=== PATIENT | female | born 1980 | race Hispanic/Latino ===

== ENCOUNTER 2020-09-24 20:25 | Inpatient (IN) | payer SELFPAY ==
[~2020-09-24] VITALS: Ht 157.5 cm; Wt 58.5 kg
[2020-09-24] MEDS ORDERED: ZOSYN 3.375GM+NS 50ML 50 ML IV ONE (21:41)
[2020-09-24 22:00] LABS: APPEARANCE,URINE CLOUDY (CLEAR); BILIRUBIN,URINE NEGATIVE (NEGATIVE); COLOR,URINE YELLOW (YELLOW); GLUCOSE, URINE (UA) 100 mg/dL (NEGATIVE); KETONES,URINE NEGATIVE (NEGATIVE); LEUKOCYTE ESTERASE ,URINE TRACE (NEGATIVE); NITRATE,URINE NEGATIVE (NEGATIVE); OCCULT BLOOD,URINE TRACE-INTACT (NEGATIVE); PROTEIN,URINE 30 mg/dL (NEGATIVE)
[2020-09-24 22:03] LABS: HCG,QUAL RESULT NEGATIVE (NEGATIVE)
[2020-09-24] MEDS ORDERED: ONDANSETRON HCL 4 MG/2 ML VIAL ONE (22:04)
[2020-09-24] MEDS ORDERED: SODIUM CHLORIDE 0.9% 1000ML 1,000 ML IV ONE (22:05)
[2020-09-24] MEDS ORDERED: MORPHINE SULFATE 4 MG/1ML SYG ONE (22:05)
[2020-09-24] MEDS ORDERED: ACETAMINOPHEN 325 MG TAB ONE (22:05)
[2020-09-24 22:13] LABS: BASOPHILS % (AUTO) 0.2 % (0.0-5.0); HEMATOCRIT 33.4 % (36-48); LYMPHOCYTES % (AUTO) 7.5 % (21.0-51.0); MEAN CORPUSCULAR HEMOGLOBIN 30.3 pg (27.0-33.0); MEAN CORPUSCULAR HGB CONC 32.6 g/dL (32.0-36.0); MEAN CORPUSCULAR VOLUME 92.8 fL (79-99); MONOCYTES % (AUTO) 5.5 % (3.0-13.0); NEUTROPHILS % (AUTO) 86.1 % (40.0-77.0); PLATELET COUNT (AUTO) 341 K/uL (130-400); RED CELL DISTRIBUTION WIDTH 12.4 % (11.0-15.5); WHITE BLOOD COUNT (AUTO) 21.5 K/uL (4.8-10.8)
[2020-09-24 22:14] LABS: BACTERIA,URINE Rare /HPF (None Seen); RBC,URINE 0-1 /HPF (0-1); YEAST,URINE BUDDING Moderate /HPF (None Seen)
[2020-09-24 22:15] LABS: SQUAMOUS EPITHELIAL CELL,UR None Seen /HPF (0-2)
[2020-09-24 22:22] LABS: INR 1.03 (0.85-1.15); PROTHROMBIN TIME 11.2 SEC (9.6-11.6)
[2020-09-24 22:25] LABS: CREATININE 0.6 mg/dL (0.5-1.5); POTASSIUM 3.2 mmol/L (3.5-5.1)
[2020-09-24 22:30] LABS: ALBUMIN 3.3 g/dL (3.5-5.0); BILIRUBIN,TOTAL 1.6 mg/dL (0.2-1.0); TOTAL PROTEIN, SERUM 7.6 g/dL (6.0-8.3)
[2020-09-24] MEDS ORDERED: IOHEXOL-350 75 ML VIAL IV ONE (22:32)
[2020-09-25] MEDS ORDERED: LACTATED RINGERS 1000ML 1,000 ML IV SCH (00:15)
[2020-09-25] MEDS ORDERED: LACTULOSE 20 GM/30 ML UDCUP PO PRN (02:30)
[2020-09-25] MEDS ORDERED: ONDANSETRON HCL 4 MG/2 ML VIAL IV PRN (02:30)
[2020-09-25] MEDS ORDERED: NITROGLYCERIN 0.4 MG SL TAB SL PRN (02:30)
[2020-09-25] MEDS ORDERED: ACETAMINOPHEN 325 MG TAB PO PRN ×2 (02:30)
[2020-09-25] MEDS ORDERED: DIPHENHYDRAMINE HCL 25 MG CAPSULE PO PRN (02:30)
[2020-09-25] MEDS ORDERED: DiphenhydrAMINE HCL 50 MG/ML VIAL IV PRN (02:30)
[2020-09-25] MEDS ORDERED: MORPHINE SULFATE 2 MG/ML 1ML SYG IV PRN (02:30)
[2020-09-25] MEDS ORDERED: MAG HYDROX/AL HYDROX/SIMETH ES 30 ML SUSP UDCUP PO PRN (02:30)
[2020-09-25] MEDS: LACTATED RINGERS 1000ML 1,000 ML IV SCH ×3 (02:30→20:26)
[2020-09-25] MEDS ORDERED: GUAIFENESIN-DM 200/20 MG 10 ML PO PRN (02:30)
[2020-09-25] MEDS: DOXYCYCLINE 100MG+NS 250ML 250 ML IV SCH ×2 (03:00→15:00)
[2020-09-25] MEDS ORDERED: DOXYCYCLINE 100MG+NS 250ML 250 ML IV ONE ×2 (03:41→15:43)
[2020-09-25] MEDS ORDERED: MORPHINE SULFATE 2 MG/ML 1ML SYG ONE ×2 (03:49→16:01)
[2020-09-25 03:58] LABS: HEMATOCRIT 28.4 % (36-48); MEAN CORPUSCULAR HEMOGLOBIN 30.6 pg (27.0-33.0); MEAN CORPUSCULAR HGB CONC 32.4 g/dL (32.0-36.0); MEAN CORPUSCULAR VOLUME 94.4 fL (79-99); RED BLOOD CELL COUNT(AUTO) 3.01 MIL/uL (4.00-5.50); RED CELL DISTRIBUTION WIDTH 12.3 % (11.0-15.5); WHITE BLOOD COUNT (AUTO) 17.4 K/uL (4.8-10.8)
[2020-09-25 04:22] LABS: ALBUMIN 2.5 g/dL (3.5-5.0); BILIRUBIN,DIRECT 0.5 mg/dL (0.0-0.3); BILIRUBIN,TOTAL 1.3 mg/dL (0.2-1.0); CREATININE 0.6 mg/dL (0.5-1.5); CRP QUANTITATIVE 165.8 mg/L (0.00-9.0); POTASSIUM 3.1 mmol/L (3.5-5.1); TOTAL PROTEIN, SERUM 6.5 g/dL (6.0-8.3)
[2020-09-25] MEDS: ZOSYN 3.375GM+NS 50ML 50 ML IV SCH ×3 (06:00→21:24)
[2020-09-25] MEDS ORDERED: ZOSYN 3.375GM+NS 50ML 50 ML IV ONE ×2 (07:51→15:42)
[2020-09-25] MEDS ORDERED: FAMOTIDINE/PF 20 MG/2 ML VIAL IV ONE (07:52)
[2020-09-25] MEDS: FAMOTIDINE/PF 20 MG/2 ML VIAL IV SCH ×2 (09:00→20:51)
[2020-09-25 16:19] VITALS: BP 139/90
[2020-09-25 20:01] VITALS: BP 136/81
[2020-09-25 23:25] VITALS: BP 119/62
[2020-09-26] VITALS (17 sets, daily range): BP systolic 116–134; BP diastolic 69–80
[2020-09-26] MEDS ORDERED: DOXYCYCLINE 100MG+NS 250ML 250 ML IV ONE (03:06)
[2020-09-26] MEDS: DOXYCYCLINE 100MG+NS 250ML 250 ML IV SCH ×2 (03:18→15:35)
[2020-09-26] MEDS: MORPHINE SULFATE 2 MG/ML 1ML SYG IV PRN ×3 (05:24→20:39)
[2020-09-26] MEDS: ZOSYN 3.375GM+NS 50ML 50 ML IV SCH ×3 (05:25→20:37)
[2020-09-26 05:48] LABS: BASOPHILS % (AUTO) 0.2 % (0.0-5.0); EOSINOPHILS % (AUTO) 0.2 % (0.0-8.0); LYMPHOCYTES % (AUTO) 12.6 % (21.0-51.0); MEAN CORPUSCULAR HEMOGLOBIN 30.4 pg (27.0-33.0); MEAN CORPUSCULAR HGB CONC 32.1 g/dL (32.0-36.0); MEAN CORPUSCULAR VOLUME 94.6 fL (79-99); MONOCYTES % (AUTO) 6.7 % (3.0-13.0); NEUTROPHILS % (AUTO) 79.9 % (40.0-77.0); PLATELET COUNT (AUTO) 305 K/uL (130-400); RED BLOOD CELL COUNT(AUTO) 2.96 MIL/uL (4.00-5.50); RED CELL DISTRIBUTION WIDTH 12.2 % (11.0-15.5); WHITE BLOOD COUNT (AUTO) 16.1 K/uL (4.8-10.8)
[2020-09-26 06:06] LABS: CREATININE 0.5 mg/dL (0.5-1.5); POTASSIUM 3.1 mmol/L (3.5-5.1)
[2020-09-26] MEDS: FAMOTIDINE/PF 20 MG/2 ML VIAL IV SCH ×2 (08:10→20:37)
[2020-09-26] MEDS ORDERED: PROPOFOL 10 MG/ML 20ML VIAL IV ONE (11:49)
[2020-09-26 12:49] LABS: ALBUMIN 2.4 g/dL (3.5-5.0); BILIRUBIN,DIRECT 0.5 mg/dL (0.0-0.3); TOTAL PROTEIN, SERUM 6.4 g/dL (6.0-8.3)
[2020-09-26] MEDS ORDERED: POTASSIUM CHLORIDE 20 MEQ ERTAB PO SCH (16:00)
[2020-09-26] MEDS: METRONIDAZOLE 500 MG TABLET PO SCH ×2 (18:23→20:38)
[2020-09-27 03:38] VITALS: BP 124/73
[2020-09-27] MEDS: ZOSYN 3.375GM+NS 50ML 50 ML IV SCH (04:21)
[2020-09-27 05:08] LABS: BASOPHILS % (AUTO) 0.4 % (0.0-5.0); EOSINOPHILS % (AUTO) 0.5 % (0.0-8.0); HEMATOCRIT 27.4 % (36-48); LYMPHOCYTES % (AUTO) 13.7 % (21.0-51.0); MEAN CORPUSCULAR HEMOGLOBIN 30.2 pg (27.0-33.0); MEAN CORPUSCULAR HGB CONC 32.5 g/dL (32.0-36.0); MEAN CORPUSCULAR VOLUME 92.9 fL (79-99); MONOCYTES % (AUTO) 7.2 % (3.0-13.0); NEUTROPHILS % (AUTO) 77.7 % (40.0-77.0); PLATELET COUNT (AUTO) 325 K/uL (130-400); RED BLOOD CELL COUNT(AUTO) 2.95 MIL/uL (4.00-5.50); WHITE BLOOD COUNT (AUTO) 12.9 K/uL (4.8-10.8)
[2020-09-27 05:36] LABS: ALBUMIN 2.2 g/dL (3.5-5.0); BILIRUBIN,DIRECT 0.5 mg/dL (0.0-0.3); BILIRUBIN,TOTAL 0.9 mg/dL (0.2-1.0); CREATININE 0.5 mg/dL (0.5-1.5); POTASSIUM 3.5 mmol/L (3.5-5.1); TOTAL PROTEIN, SERUM 6.8 g/dL (6.0-8.3)
[2020-09-27] MEDS: METRONIDAZOLE 500 MG TABLET PO SCH (06:26)
[2020-09-27 09:01] VITALS: BP 133/76
[2020-09-27] MEDS: FAMOTIDINE/PF 20 MG/2 ML VIAL IV SCH (09:30)
[2020-09-27] MEDS ORDERED: LEVO500T89 PO (11:31)
[2020-09-27] MEDS ORDERED: FLUC100T8 PO (11:31)
[2020-09-27] MEDS ORDERED: PANT40TA55 PO (11:31)
[2020-09-27 12:00] VITALS: BP 132/80
[2020-09-27 14:13] LABS: HEPATITIS A ANTIBODY IGM SEE SEPARATE REPORT (Negative); HEPATITIS B CORE IGM SEE SEPARATE REPORT (Negative); HEPATITIS Bs ANTIGEN SCREEN P SEE SEPARATE REPORT (Negative)
[2020-09-27 17:03] VITALS: BP 126/72
== END 2020-09-27 15:00 | disposition home or self-care (01) | DRG 392 ==
LOC: EDH 20:25 → EDHIP 20:26 → 3CH 09-25 16:18
PROVIDERS: ADMIT Family Medicine; ATTEND Family Medicine
PROC: 0DB68ZX Excision of Stomach, Via Natural or Artificial Opening Endoscopic, Diagnostic (ICD-10-PCS; principal; 2020-09-26)
DX: K52.9 Noninfective gastroenteritis and colitis, unspecified (principal); N39.0 Urinary tract infection, site not specified; R17 Unspecified jaundice; E86.0 Dehydration; R74.8 Abnormal levels of other serum enzymes; Z20.822 Contact with and (suspected) exposure to COVID-19; N83.201 Unspecified ovarian cyst, right side; N83.202 Unspecified ovarian cyst, left side
CPT/HCPCS: 36415; 43239; 71045; 74177; 74181; 76705; 80048; 80053; 80074; 80076; 81001; 81025; 82977; 83516; 83605; 83615; 83690; 84145; 85025; 85027; 85610; 85730; 86038; 86140; 86255; 86900; 86901; 87040; 87426; 87486; 87797; 93005; A4606; G0378; J2270; J2405; J2543; J2704; J3490; J7030; J7120; Q9967; U0003